=== PATIENT | female | born 1975 | race Caucasian/White ===

== ENCOUNTER 2018-07-16 12:08 | Emergency (ER) | payer BC ==
[~2018-07-16] VITALS: Ht 152.4 cm; Wt 97.5 kg
[~2018-07-16 12:08] MED LIST: CEPHALEXIN500 MG PO; CLARITIN10 MG PO; FLAGYL500 MG PO; Fioricet 325 MG1 TAB PO; SERTRALINE HYD100 MG PO; ZANTAC150 MG PO; ZITHROMAX Z PA250 MG PO; ZOFRAN4 MG PO
[2018-07-16 12:50] LABS: BASO # 0.1 10*3/uL (0.0-0.1); BASO % 0.7 % (0.0-1.0); EOS # 0.7 10*3/uL (0.0-0.4); EOS % 5.1 % (1.0-4.0); HEMATOCRIT 42.2 % (37.0-47.0); HEMOGLOBIN 14.8 g/dl (12.0-16.0); LYMPH # 4.1 10*3/uL (1.3-4.4); LYMPH % 30.2 % (27.0-41.0); MEAN CELL VOLUME 88.3 fl (81.0-99.0); MEAN CORPUSCULAR HGB CONC 35.1 g/dl (33.0-37.0); MONO # 0.8 10*3/uL (0.1-1.0); MONO % 5.9 % (3.0-9.0); NEUT # 7.9 10*3/uL (2.3-7.9); NEUT % 57.7 % (47.0-73.0); PLATELET COUNT AUTOMATED 325 10*3/uL (130-400); RED BLOOD COUNT 4.78 10*6/uL (4.10-5.10); RED CELL DISTRI WIDTH 12.9 % (0-14.5); WHITE BLOOD COUNT 13.6 10*3/uL (4.8-10.8)
[2018-07-16] MEDS ORDERED: CLARITHROMYCIN500 MG PO (12:51)
[2018-07-16] MEDS ORDERED: BENZONATATE100 M1 PO (12:52)
[2018-07-16 13:03] LABS: ALBUMIN 3.5 gm/dl (3.1-4.5); ALKALINE PHOSPHATASE 99 U/L (45-117); BUN 8 mg/dl (7-24); CHLORIDE 103 mmol/L (98-107); POTASSIUM 4.1 mmol/L (3.5-5.1); SGOT/AST 35 IU/L (3-35); SGPT/ALT 53 U/L (12-78); SODIUM 136 mmol/L (136-145); TOTAL PROTEIN 7.2 gm/dL (6.4-8.2)
[2018-07-16] MEDS ORDERED: ZYRTEC10 MG PO (13:54)
== END 2018-07-16 14:41 | disposition home or self-care (01) ==
LOC: ED 12:08
PROVIDERS: Nurse Practitioner Family
DX: J02.9 Acute pharyngitis, unspecified (principal); Z79.899 Other long term (current) drug therapy; Z79.2 Long term (current) use of antibiotics

== ENCOUNTER 2022-07-21 16:33 | Emergency (ER) | payer BC ==
[~2022-07-21] VITALS: Ht 152.4 cm; Wt 94.3 kg
[~2022-07-21 16:33] MED LIST changes: +BENZONATATE100 M1 PO; +CLARITHROMYCIN500 MG PO; +ZYRTEC10 MG PO
== END 2022-07-21 17:26 | disposition home or self-care (01) ==
LOC: ED 16:33
DX: R33.9 Retention of urine, unspecified (principal); Z79.899 Other long term (current) drug therapy; Z90.49 Acquired absence of other specified parts of digestive tract